=== PATIENT | male | born 2005 | race Caucasian/White ===

== ENCOUNTER 2024-10-26 20:20 | Emergency (ER) | payer BC ==
[2024-10-26] MEDS ORDERED: Ibuprofen 800 MG TAB ONE (20:48)
== END 2024-10-26 21:45 | disposition home or self-care (01) ==
LOC: ERS 20:20
DX: J11.1 Influenza due to unidentified influenza virus with other respiratory manifestations (principal)
CPT/HCPCS: 71046; 87081; 87428; 87430